=== PATIENT | female | born 1985 | race Caucasian/White ===

== ENCOUNTER 2022-06-29 05:26 | Emergency (ER) | payer BC ==
[2022-06-29] MEDS ORDERED: LIDOCAINE HCL 2% (20ML MULTI-DOSE VIAL) ONE (05:32)
[2022-06-29 05:43] VITALS: BP 134/88; PULSE 72; RESP 17; TEMP 98.5; BMI 24.9
[2022-06-29] MEDS ORDERED: ACETAMINOPHEN 325 MG TABLET (FP) PO ONE (05:56)
[2022-06-29] MEDS ORDERED: CEPHALEXIN MONOHYDRATE 500 MG CAPSULE (UD) PO ONE (05:56)
[2022-06-29] MEDS ORDERED: ACETAMINOPHEN 325 MG TABLET (FP) ONE (05:57)
[2022-06-29] MEDS ORDERED: CEPHALEXIN MONOHYDRATE 500 MG CAPSULE (UD) ONE (05:57)
[2022-06-29] MEDS ORDERED: LIDOCAINE HCL 2% (50ML VIAL) INF ONE (06:08)
== END 2022-06-29 06:54 | disposition home or self-care (01) ==
LOC: FER 05:26
DX: S60.111A Contusion of right thumb with damage to nail, initial encounter (principal); W23.0XXA Caught, crushed, jammed, or pinched between moving objects, initial encounter
CPT/HCPCS: 73140-TC-RT-FY; 99283-25

== ENCOUNTER 2025-02-11 11:22 | Emergency (ER) | payer BC ==
[2025-02-11 11:47] VITALS: BP 125/91; PULSE 73; RESP 17; TEMP 98.2; BMI 24.9
[2025-02-11 12:26] LABS: ABSOLUTE IMMATURE GRANULOCYTES 0.01 x10^3/uL (0.0-0.031); BASOPHILS # 0.01 x10^3/uL (0.01-0.08); EOSINOPHIL % 1.7 % (0.7-5.8); EOSINOPHILS # 0.12 x10^3/uL (0.04-0.36); HEMOGLOBIN 13.8 g/dL (11.2-15.7); MCHC 32.9 g/dl (32.2-35.5); MEAN CELL VOLUME 90.9 fl (79.4-94.8); MEAN PLT VOLUME 10.5 fl (9.4-12.3); MONOCYTE # 0.36 x10^3/uL (0.24-0.86); PLATELET COUNT 181 x10^3/uL (182-369); RDW 12.6 % (12.1-16.8)
[2025-02-11] MEDS: SODIUM CHLORIDE 0.9% 500 ML INFUS.BAG IV ONE (12:40)
[2025-02-11 12:44] LABS: ALBUMIN 4.7 g/dl (3.4-5.0); ALK PHOS 34 U/L (45-117); ANION GAP 6 mmol/L (4-13); BILIRUBIN,TOTAL 0.7 mg/dl (0.2-1); CHLORIDE 104 mmol/L (98-107); CO2 30 mmol/L (21-32); CREATININE 0.6 mg/dl (0.6-1.3); GLUCOSE,RANDOM 69 mg/dl (74-106); MAGNESIUM 2.1 mg/dL (1.8-2.4); POTASSIUM 4.1 mmol/L (3.5-5.1); SGOT/AST 13 U/L (15-37); SGPT/ALT 10 U/L (7-52); SODIUM 140 mmol/L (136-145); TOT PROT 6.9 g/dl (6.4-8.2)
[2025-02-11] MEDS ORDERED: MAG HYDROX/AL HYDROX/SIMETH 30 ML UNIT-DOSE CUP ONE (12:44)
== END 2025-02-11 13:55 | disposition home or self-care (01) ==
LOC: FER 11:22
DX: R42 Dizziness and giddiness (principal); R00.2 Palpitations; R55 Syncope and collapse
CPT/HCPCS: 36415; 80053; 81025; 83735; 84484; 84703; 85025; 99283-25